=== PATIENT | male | born 1935 | race Caucasian/White ===

== ENCOUNTER → 2016-12-25 09:55 | Outpatient (CLI) | payer MEDICARE ==
[2013-03-24 10:47] VITALS: BMI 24.3
[~2016-12-25 09:55] MED LIST: ARICEPT10 MG PO; CARDURA4 MG PO; CIPRO500 MG PO; LIPITOR80 MG PO; MULTIPLE VITAMI1 TA1 PO; OMEGA 3 FISH OI1 CAP PO; OMEPRAZOLE20 M1 PO; STOOL SOFTENER100 M1 PO; ULTRAM50 MG PO; VITAMIN D31000 UNIT PO
== END | disposition home or self-care (01) ==
LOC: D.LAB 09:55
DX: R97.20 Elevated prostate specific antigen [PSA] (principal)

== ENCOUNTER 2017-02-13 06:18 | Day surgery (SDC) | payer MEDICARE ==
[2017-02-12 14:38] LABS: BASOPHILS 0.1 % (0-2); EOSINOPHILS 2.1 % (0-7); HEMATOCRIT 37.5 % (42.0-54.0); IMMATURE GRANULOCYTES 0.1 % (0-5); LYMPHOCYTES 11.2 % (15-50); MCH 32.6 pg (26.0-34.0); MCV 101.9 fL (80.0-100.0); MEAN PLATELET VOLUME 9.9 fL (7.4-10.4); NEUTROPHILS 77.5 % (40-80); PLATELET COUNT 104 10x3/uL (130-400); RBC 3.68 10x6/uL (4.20-6.10); RDW 13.8 % (11.5-14.5); WBC 9.8 10x3/uL (4.8-10.8)
[2017-02-12 15:10] LABS: ANION GAP 10.9 mmol/L (8-16); CALCIUM 8.5 mg/dL (8.5-10.1); CARBON DIOXIDE 27.5 mmol/L (21.0-32.0); CREATININE - SERUM 1.3 mg/dL (0.6-1.3); POTASSIUM - SERUM 4.4 mmol/L (3.5-5.1)
[~2017-02-13] VITALS: Ht 172.7 cm; Wt 66.7 kg
[2017-02-13 06:25] VITALS: BP 138/69; Ht 172.7 cm; Wt 66.7 kg
--- NOTE | 2017-02-13 08:32 | NUR ---
ARMS DOWN AT SIDE, ALLEN.
--- NOTE | 2017-02-13 08:33 | NUR ---
ULTRASOUND USED WITH ALLEN SIMPSON.
--- NOTE | 2017-02-14 16:50 | OP ---
PATIENT NAME: SYED CONNELLY MEDICAL RECORD: [id number] :35 LOCATION:[facility] ADMISSION DATE: SURGEON: SYED ABERNATHY MD DATE OF OPERATION: 02/13/2017 SURGEON: Syed Abernathy MD. ANESTHESIA: MAC by Dr. Soriano. PREOPERATIVE DIAGNOSIS: Elevated PSA greater than 9. PROCEDURE: Transrectal ultrasound and prostate biopsy with greater than 12 cores. FINDINGS: A 15 mL prostatic volume. Hypoechoic area in the left mid pole of the prostate with a 0.6 mL volume. PROCEDURES: Transrectal ultrasound and prostate biopsy. SPECIMENS: From prostate biopsy. ESTIMATED BLOOD LOSS: Minimal. CLINICAL HISTORY: This is an 81-year-old male, who has an elevated PSA level of 9.3. Previously was in the normal range. He has a family history of prostate cancer with a younger brother having prostate cancer. On digital rectal examination, he had a relatively small prostate and no palpable hard nodules. He comes now to have a transrectal ultrasound and prostate biopsy. He was ALLERGIC TO SULFA and he was given Cipro antibiotic prophylaxis, which he took at home, starting from 2 days prior to the biopsy. Also, he had a Fleet Enema the evening prior to the biopsy. Today, we gave him Ancef 1 gram and gentamicin 80 mg also IV. DESCRIPTION OF PROCEDURE: The patient was given IV sedation. He was placed in the dorsal lithotomy position and then prepped and draped. The ultrasound transrectal probe was placed into the rectum and prostate visualization and measurement was performed. A large hypoechoic lesion was visible in the left mid lobe of the prostate. We then divided the prostate into 6 quadrants. We had the left base, left mid and left apex for 3 quadrants on the left side. On the right side, there were similarly the right base, right mid and right apex. In each of these quadrants or sectors, we obtained 2 core biopsies using a biopsy gun. We actually have greater than 12 specimens because in some areas, we took extra, especially in the hypoechoic region on the ultrasound. The patient tolerated the procedure quite well and once the procedure was done, he was brought to the recovery room. TRANSINT:[id number] Voice Confirmation ID: [id number] DOCUMENT ID: [id number] OPERATIVE REPORT [id number] GODWINSYED SYED TREADWELL MD at 1650 CC: [id number] DICTATION DATE: 02/13/17 0915 CONTENT PRODUCER: 02/13/17 1143 [facility] 02/13/17 [facility] [address] [place] [address]
== END 2017-02-13 10:50 | disposition home or self-care (01) ==
LOC: D.OPS 06:18 → D.PAN 08:15 → D.OPS 08:30
PROVIDERS: Anesthesiology
DX: N40.0 Benign prostatic hyperplasia without lower urinary tract symptoms (principal); R97.20 Elevated prostate specific antigen [PSA]

== ENCOUNTER → 2019-01-11 10:13 | Outpatient (CLI) | payer OTHER ==
[2017-02-13 06:25] VITALS: BMI 22.4
== END | disposition home or self-care (01) ==
LOC: D.RAD 10:13
PROVIDERS: ATTEND Family Medicine
DX: R09.89 Other specified symptoms and signs involving the circulatory and respiratory systems (principal)

== ENCOUNTER 2020-01-27 10:16 | Inpatient (IN) | payer OTHER ==
[~2020-01-27] VITALS: Ht 172.7 cm; Wt 44.6 kg
[2020-01-27 11:03] LABS: BASOPHILS 0.1 % (0-2); EOSINOPHILS 0.8 % (0-7); HEMATOCRIT 39.3 % (42.0-54.0); HEMOGLOBIN 12.3 g/dL (13.5-17.5); IMMATURE GRANULOCYTES 0.4 % (0-5); LYMPHOCYTES 4.3 % (15-50); MCH 32.5 pg (26.0-34.0); MCHC 31.3 g/dL (31.0-37.0); MEAN PLATELET VOLUME 9.5 fL (7.4-10.4); MONOCYTES 7.4 % (2-11); RBC 3.78 10x6/uL (4.20-6.10); RDW 13.3 % (11.5-14.5); WBC 11.7 10x3/uL (4.8-10.8)
[2020-01-27 11:11] LABS: PLATELET COUNT 164 10x3/uL (130-400)
[2020-01-27 11:14] LABS: APTT 25.4 SECONDS (22.8-39.4); INR 1.12 (0.85-1.17); PROTIME 14.3 SECONDS (11.6-15.0)
[2020-01-27 11:31] LABS: CALC OSMOLALITY 288 mosm/kg (275-300); CALCIUM 8.6 mg/dL (8.5-10.1); CARBON DIOXIDE 29.1 mmol/L (21.0-32.0); CHLORIDE - SERUM 106 mmol/L (98-107); CREATININE - SERUM 1.5 mg/dL (0.6-1.3); GLUCOSE 83 mg/dL (74-106); POTASSIUM - SERUM 4.5 mmol/L (3.5-5.1); SODIUM 142 mmol/L (136-145); UREA NITROGEN 31 mg/dL (7-18); eGFR NON AFRICAN AMERICAN 47 mL/min (90-120)
[2020-01-27 11:38] LABS: ALBUMIN 2.3 g/dL (3.4-5.0); ALKALINE PHOSPHATASE 70 U/L (30-120); ALT (SGPT) 16 U/L (10-68); BILIRUBIN - TOTAL 0.46 mg/dL (0.2-1.3); CKMB 0.7 U/L (0.0-3.6); CREATINE KINASE 27 UL (21-232); MAGNESIUM - SERUM 2.4 mg/dL (1.8-2.4); PROTEIN - SERUM 5.6 g/dL (6.4-8.2); T4 THYROXIN - FREE 1.57 ng/dL (0.76-1.46); THYROID STIMULATING HORMONE 0.53 uIU/mL (0.36-3.74)
[2020-01-27 11:40] LABS: TROPONIN-I < 0.017 ng/mL (0.000-0.060)
[2020-01-27 13:03] LABS: UDS - AMPHET NEGATIVE QUAL (NEGATIVE); UDS - BARB NEGATIVE QUAL (NEGATIVE); UDS - BENZO NEGATIVE QUAL (NEGATIVE); UDS - COCAINE NEGATIVE QUAL (NEGATIVE); UDS - OPIATE NEGATIVE QUAL (NEGATIVE); UDS - PCP NEGATIVE QUAL (NEGATIVE); UDS - THC NEGATIVE QUAL (NEGATIVE)
[2020-01-27 13:18] LABS: BILIRUBIN NEGATIVE (NEGATIVE); GLUCOSE NEGATIVE (NEGATIVE); KETONE SMALL mg/dL (NEGATIVE); NITRITE NEGATIVE (NEGATIVE); SPECIFIC GRAVITY 1.025 (1.005-1.020)
--- NOTE | 2020-01-27 14:35 | NUR ---
PT TO ROOM FROM ER VIA CART. ASSIST TO TRANSFER TO BED. WEARING DEPENDS. ALERT BUT CONFUSED. LEVAQUIN INFUSING ON ARRIVAL.
--- NOTE | 2020-01-27 17:28 | NUR ---
PT FOUND TO HAVE PULLED IV OUT. WILL SITE NEW ONE. TELEMETRY PLACED. CALL TRANSFERRED INTO ROOM FROM .
--- NOTE | 2020-01-27 19:34 | NUR ---
PT CONFUSED AND PULLING LINES. IV OUT, TELEMETRY OFF. LOOKING FOR . CALLED HER SO HE COULD TALK TO HER BUT HX OF ALZEIMERS AND SUNDOWNING RIGHT NOW. UNABLE TO HAVE FAMILY STAY IN ROOM SO RONEN BRENNER CALLED. ORDERS FOR BENADRYL ONCE IV BACK IN TO SEE IF CALMS DOWN.
[2020-01-27] MEDS ORDERED: CIMETIDINE800 MG PO (19:41)
[2020-01-27] MEDS ORDERED: FLOMAX0.4 MG PO (19:42)
[2020-01-27] MEDS ORDERED: FOLIC ACID1 MG PO (19:44)
[2020-01-27] MEDS ORDERED: TRAZODONE HCL150 MG PO (19:45)
[2020-01-27] MEDS ORDERED: PREDNISONE1 MG PO (19:46)
[2020-01-27] MEDS ORDERED: BAYER CHEWABLE81 MG PO (19:49)
[2020-01-27] MEDS ORDERED: DULCOLAX STOOL100 MG PO (19:50)
[2020-01-27 20:00] VITALS: BP 144/56
[2020-01-28] VITALS: BP 151/70
--- NOTE | 2020-01-28 01:52 | NUR ---
ASSESSED AT THE BEGINNING OF THE SHIFT. PT IS CONFUSED AND HARD TO KEEP DRESSED AND IN THE BED. HE IS SOME WHAT COOPERATIVE WITH PUTTING ON DEPENDS IF THEY ARE WET AND HE DID FINALLY TAKE HIS MEDS AT HS. VERY PLEASANT BUT HAS NO IDEA WHERE HE IS AT. WE HAVE PUT HIM BACK IN BED MULTIPLE TIMES AND CHANGED HIM ABOUT 6 TIMES. AT THIS TIME HE IS AWAKE BUT STAYING IN THE BED WITH A BLANKET OVER HIM.
[2020-01-28 04:00] VITALS: BP 121/61
--- NOTE | 2020-01-28 04:04 | NUR ---
PT ALLOWED ME TO RESTART HIS IV IN THE RT WRIST AND HIS IV LASIX AND BENADRYL WERE GIVEN. HE HAD A ONE TIME ORDER FOR BENADRYL BUT HE HAD PULLED OUT HIS IV AND HE WAS UP AND ABOUT TOO MUCH TO KEEP ONE IN. RIGHT NOW HE HAS LEFT IT IN AND IS IN BED WITH THE COVERS ON. HOPEFULLY HE WILL KEEP IT IN. HE HAS BEEN NPO SINCE MIDNIGHT.
[2020-01-28 06:27] LABS: BASOPHILS 0.1 % (0-2); EOSINOPHILS 0.1 % (0-7); HEMATOCRIT 40.5 % (42.0-54.0); HEMOGLOBIN 12.6 g/dL (13.5-17.5); IMMATURE GRANULOCYTES 0.2 % (0-5); LYMPHOCYTES 3.8 % (15-50); MCH 32.1 pg (26.0-34.0); MCHC 31.1 g/dL (31.0-37.0); MCV 103.3 fL (80.0-100.0); MEAN PLATELET VOLUME 9.7 fL (7.4-10.4); MONOCYTES 8.3 % (2-11); NEUTROPHILS 87.5 % (40-80); RBC 3.92 10x6/uL (4.20-6.10); RDW 13.3 % (11.5-14.5); WBC 13.1 10x3/uL (4.8-10.8)
[2020-01-28 07:04] LABS: PLATELET COUNT 207 10x3/uL (130-400)
[2020-01-28 07:13] LABS: ALBUMIN 2.4 g/dL (3.4-5.0); ANION GAP 12.8 mmol/L (8-16); BILIRUBIN - TOTAL 0.45 mg/dL (0.2-1.3); CARBON DIOXIDE 30.9 mmol/L (21.0-32.0); CREATININE - SERUM 1.5 mg/dL (0.6-1.3); MAGNESIUM - SERUM 2.3 mg/dL (1.8-2.4); POTASSIUM - SERUM 4.7 mmol/L (3.5-5.1)
--- NOTE | 2020-01-28 07:28 | NUR ---
PT IN BED AT PRESENT. SLEEPING BUT RESTLESS. WILL MONITOR FOR OOB.
[2020-01-28 10:56] VITALS: BP 131/90
--- NOTE | 2020-01-28 11:34 | NUR ---
Rehab Prescreening Consult recieved and the chart has been reviewed. He is [facility] which will require a preauth for rehab. He will require a PT and an OT for their review. Discussed with the CM Kandi harris RN. Regina Hernandez RN Clinical Liaison, Rehab
[2020-01-28 14:15] LABS: % SATURATION 10 % (15-55); IRON 19 ug/dl (35-150); TOTAL IRON BIND CAPACITY 187 ug/dl (260-445); UNSAT IRON BIND CAPACITY 168 ug/dl (150-375)
[2020-01-28 14:23] VITALS: Ht 172.7 cm; Wt 44.6 kg
[2020-01-28 14:29] VITALS: BP 154/48
--- NOTE | 2020-01-28 17:01 | NUR ---
OT NOTE: PT REQUIRED MOD A FOR BED MOB SIDE ROLLING . PT REQUIRED MOD/MAX A FOR SUPINE TO SIT. PT REQUIRED SET UP FOR FACE HYGIENE AT EOB. PT COMPELTED UE AROM AXS. [id number] THANK YOU,ROSE CARLSON
[2020-01-28 18:29] VITALS: BP 140/65
--- NOTE | 2020-01-28 19:00 | NUR ---
REPORT RECEIVED. PT LAYING IN BED RR EVEN AND UNLABORED ON RA. NO S/SX OF DISTRESS OBSERVED. PT IS RESTLESS BUT REDIRECTED WELL. CONTINUES TO SHIVER BUT IS AFEBRILE AND DENIES BEING COLD. CALL LIGHT IN REACH. BED ALARM ON. WILL CPOC.
[2020-01-28 21:20] VITALS: BP 139/66
--- NOTE | 2020-01-28 22:00 | NUR ---
PROVIDED FULL LINEN CHANGE FOR INCONTINENCE OF BOWEL AND BLADDER. PT THREATENED TO CALL THE POLICE ON STAFF IF WE DID NOT LEAVE HIM ALONE. WILL CTM.
--- NOTE | 2020-01-29 00:34 | NUR ---
PROVIDED INCONT CARE. PT UPSET. WILL CPCO.
[2020-01-29 01:30] VITALS: BP 160/79
[2020-01-29 04:43] VITALS: BP 141/88
--- NOTE | 2020-01-29 05:34 | NUR ---
PT INCONT OF B&B. UNABLE TO OBTAIN ACCURATE OUTPUT.
[2020-01-29 06:19] LABS: BASOPHILS 0.1 % (0-2); EOSINOPHILS 0.1 % (0-7); HEMATOCRIT 39.9 % (42.0-54.0); HEMOGLOBIN 12.6 g/dL (13.5-17.5); IMMATURE GRANULOCYTES 0.1 % (0-5); LYMPHOCYTES 5.9 % (15-50); MCH 32.1 pg (26.0-34.0); MCHC 31.6 g/dL (31.0-37.0); MCV 101.5 fL (80.0-100.0); MEAN PLATELET VOLUME 9.3 fL (7.4-10.4); MONOCYTES 8.7 % (2-11); NEUTROPHILS 85.1 % (40-80); PLATELET COUNT 217 10x3/uL (130-400); RBC 3.93 10x6/uL (4.20-6.10); RDW 13.1 % (11.5-14.5)
[2020-01-29 06:35] LABS: ALBUMIN 2.3 g/dL (3.4-5.0); ANION GAP 14.2 mmol/L (8-16); BILIRUBIN - TOTAL 0.7 mg/dL (0.2-1.3); CALCIUM 9.5 mg/dL (8.5-10.1); CREATININE - SERUM 1.3 mg/dL (0.6-1.3); MAGNESIUM - SERUM 2.3 mg/dL (1.8-2.4); POTASSIUM - SERUM 4.2 mmol/L (3.5-5.1)
--- NOTE | 2020-01-29 07:49 | NUR ---
PT RESTING PEACEFULLY. LEANING ON SIDE WITH MOUTH OPEN, LOOKS SCARY BUT IS ACTUALLY JUST PT SLEEPING. BREATHS EVEN REGULAR AND UNLABORED. NO SIGNS OR SYMTPOMS OF ACUTE DISTRESS NOTED AT THIS TIME. DID NOT FURTHER DISTRUB AT THIS TIME. CL IN REACH, SRX2.
[2020-01-29 10:20] VITALS: BP 154/70
[2020-01-29 14:18] VITALS: BP 151/76
[2020-01-29 16:46] VITALS: BP 151/87
--- NOTE | 2020-01-29 18:52 | NUR ---
I have reviewed this patient and I concur with the Shift Assessment completed by the Licensed Practical Nurse today this shift.
--- NOTE | 2020-01-29 19:00 | NUR ---
REPORT RECEIVED. PT CARE ASSUMED. PT ATTEMPTING TO GET OUT OF BED AND IS LOOKING FOR . REDIRECTED EASILY. RR EVEN AND UNLABORED. NO S/SX OF DISTRESS OBSERVED. FLUIDS ENCOURAGED. CALL LIGHT IN REACH. WILL CPOC.
[2020-01-29 20:00] VITALS: BP 127/61
--- NOTE | 2020-01-29 21:30 | NUR ---
LINEN CHANGE PROVIDED FOR INCONT CARE. PT ALERT TO SELF ONLY. REFUSING THICKENED LIQUIDS AT THIS TIME. STATES HE ONLY LIKES "PEPSI". CALL LIGHT IN REACH. WILL CTM.
[2020-01-30 04:00] VITALS: BP 128/52
[2020-01-30 06:36] LABS: BASOPHILS 0 % (0-2); EOSINOPHILS 0.2 % (0-7); HEMATOCRIT 37.3 % (42.0-54.0); HEMOGLOBIN 11.7 g/dL (13.5-17.5); IMMATURE GRANULOCYTES 0.3 % (0-5); LYMPHOCYTES 6.2 % (15-50); MCH 31.6 pg (26.0-34.0); MCHC 31.4 g/dL (31.0-37.0); MCV 100.8 fL (80.0-100.0); MEAN PLATELET VOLUME 9.4 fL (7.4-10.4); MONOCYTES 9.3 % (2-11); PLATELET COUNT 223 10x3/uL (130-400); WBC 11.3 10x3/uL (4.8-10.8)
[2020-01-30 07:11] LABS: ANION GAP 13.9 mmol/L (8-16); BILIRUBIN - TOTAL 0.56 mg/dL (0.2-1.3); CARBON DIOXIDE 29.7 mmol/L (21.0-32.0); CREATININE - SERUM 1.5 mg/dL (0.6-1.3); MAGNESIUM - SERUM 2.3 mg/dL (1.8-2.4); POTASSIUM - SERUM 3.6 mmol/L (3.5-5.1); PROTEIN - SERUM 6.5 g/dL (6.4-8.2)
[2020-01-30 07:12] LABS: C-REACTIVE PROTEIN 14.2 mg/dL (0.0-0.9)
--- NOTE | 2020-01-30 07:44 | NUR ---
PT RESTING PEACEFULLY, WHEN SNORING? PT MAKES AWFUL GUPPY LIKE SNORING SOUNDS. RESTS WITH MOUTH GAPED OPEN, LEANING ON LEFT SIDE IN BED. DRS ARE AWARE. CL IN REACH,SRX2. BED ALARM ON AND WORKING WNL
[2020-01-30 10:35] VITALS: BP 131/72
--- NOTE | 2020-01-30 12:47 | NUR ---
PT GOT UP TO THE CHAIR WITH PHYSCIAL THERAPY, MODERATE TO MAX ASSIST. SAT IN THE CHAIR FOR ABOUT 1 HOUR, THEN GOT UP (STANDBY ASSIST) TO USE THE RESTROOM. NOW BACK IN BED, RESTING COFORTABLY BUT STILL DOING THE WEIRD BREATHING. O2 SATS ARE GOOD. CL IN REACH, SRX2, BED ALARM ON .
[2020-01-30 13:50] VITALS: BP 124/68
--- NOTE | 2020-01-30 17:33 | NUR ---
I have reviewed this patient and I concur with the Shift Assessment completed by the Licensed Practical Nurse today this shift.
--- NOTE | 2020-01-30 18:08 | NUR ---
PT AWAKE AND CONFUSED WHEN I ENTERED ROOM. EARLIER TODAY, ASSISTED PT TO RESTROOM. WHILE IN THE BATHROOM ADMINISTERED BED BATH. NOW RESTING COMFORABLY IN BED. NO COMPLAITNS OR CONCERNS, PLESANT DEMENOR WHEN AWAKE. CL IN REACH, SRX2, BED ALARM ON AND WORKING WNL.
[2020-01-30 20:00] VITALS: BP 138/68
[2020-01-31] VITALS: BP 137/66
[2020-01-31 04:00] VITALS: BP 142/67
[2020-01-31 06:33] LABS: BASOPHILS 0.1 % (0-2); EOSINOPHILS 0.1 % (0-7); HEMOGLOBIN 12.3 g/dL (13.5-17.5); IMMATURE GRANULOCYTES 0.3 % (0-5); LYMPHOCYTES 5.1 % (15-50); MCH 31.9 pg (26.0-34.0); MCHC 31.5 g/dL (31.0-37.0); MEAN PLATELET VOLUME 9.3 fL (7.4-10.4); MONOCYTES 8.6 % (2-11); NEUTROPHILS 85.8 % (40-80); PLATELET COUNT 214 10x3/uL (130-400); RBC 3.86 10x6/uL (4.20-6.10); RDW 13.1 % (11.5-14.5); WBC 13.1 10x3/uL (4.8-10.8)
[2020-01-31 06:56] LABS: ANION GAP 12.2 mmol/L (8-16); BILIRUBIN - TOTAL 0.62 mg/dL (0.2-1.3); CARBON DIOXIDE 31.1 mmol/L (21.0-32.0); CREATININE - SERUM 1.7 mg/dL (0.6-1.3); MAGNESIUM - SERUM 2.3 mg/dL (1.8-2.4); POTASSIUM - SERUM 3.3 mmol/L (3.5-5.1); PROTEIN - SERUM 6.7 g/dL (6.4-8.2)
[2020-01-31 06:58] LABS: ALBUMIN 2.1 g/dL (3.4-5.0)
--- NOTE | 2020-01-31 07:56 | NUR ---
PT LAYING IN BED RESTING WITH EYES OPEN RR EVEN AND UNLABORED AT THIS TIME. PT NPO FOR SCHEDULED PROCEDURE THIS AM. NO S/S OF DISTRESS. GRAND-DAUGHTER KAVYA AT BEDSIDE. BED LOW CALL LIGHT WITHIN REACH. WILL CONTINUE TO MONITOR.
[2020-01-31 08:00] VITALS: BP 138/67
--- NOTE | 2020-01-31 09:43 | NUR ---
PT ALERT WITH SOME CONFUSION. PT VSS. PT UP IN BEDSIDE CHAIR PER PT. CHAIR ALARM IN PLACE, CALL LIGHT WITHIN REACH, WILLCONTINUE TO MONITOR.
--- NOTE | 2020-01-31 09:57 | EC ---
PATIENT:MATEO CONNELLY DATE OF SERVICE: 01/27/20 SEX: M MEDICAL RECORD: [id number] DATE OF : 35 LOCATION:D.M2 D.213 AGE OF PATIENT: 84 ADMISSION DATE: 01/27/20 REFERRING PHYSICIAN: INTERPRETING PHYSICIAN: POLY CARABALLO MD ECHOCARDIOGRAM REPORT ECHO CHARGES 4 ECHO COMPLETE Date: 01/27/20 CLINICAL DIAGNOSIS: CHF ECHOCARDIOGRAPHIC MEASUREMENTS (adult normal given) AC root (d.<3.7cm) 3.1 cm LV Septum d (<1.2 cm> 1.1 cm Valve Excursion 1.9 cm LV Septum (systole) 1.8 cm Left Atria (s.<4.0cm> 3.2 cm LVPW d(<1.2cm) 1.0 cm RV (d.<2.3cm) 2.6 cm LVPW (sytole) 1.3 cm LV diastole(<5.6CM) 4.7 cm MV E-F(>70mm/sec) cm LV systole 3.4 cm LVOT Diameter 1.7 cm MV exc.(>10mm) cm Est.ejection fraction (50-75%) % DOPPLER: LVIT cm/sec A 74 cm/sec E 64 cm/sec LA cm/sec RVSP 31.0 mmHg LVOT 104 cm/sec AOP1/2T m/s Asc. Ao 135 cm/sec RVOT 80 cm/sec RA cm/sec PA 86 cm/sec AV Gradient Peak 7.3 mmHg AV Mean 3.6 mmHg AV Area 2.1 cm MV Gradient Peak 3.6 mmHg MV Mean 2.2 mmHg MV Area cm COMMENTS: Adjunct History Instructor: Ernesto [facility] Group Director Experience: 3 Dr. Parker TAPE# PACS Pericardial Effusion N DATE OF SERVICE: Adequate 2D, color flow imaging, spectral Doppler, and M-Mode No LVH. LV internal dimension is normal. Wall motion is normal. EF is greater than or equal to 55%. Aortic valve is tricuspid. No evidence of stenosis on Doppler interrogation. Left atrium is normal at 3.2 cm. Mitral valve shows no prolapse. Trace MR. Right-sided chambers are grossly normal. Trace TR. TRANSINT:[id number] Voice Confirmation ID: [id number] DOCUMENT ID: [id number] ECHOCARDIOGRAM REPORT [id number] MATEO CONNELLY POLY CARABALLO MD at 0957 CC: [id number] DICTATION DATE: 01/28/20 1016 SUPERVISOR EPOXY FABRICATION: 01/28/20 1204 ADM IN [place] [id number] [place] [address]
--- NOTE | 2020-01-31 11:27 | NUR ---
Noted a stage 2 pressure injury on sacrum measuring 4cm x 3cm. No drainage or odor is noted. Bilateral heels are non-blanchable red and boggy. Protected sacrum with large mepilex sacral dressing and both heels with mepilex heel protection dressings. Pt is being turned/repositioned q 2 hours and heels are elevated, but he is confused and kicks pillows out and repositions himself back on his back. Wound care will continue monitoring.
[2020-01-31 14:03] VITALS: BP 124/68
--- NOTE | 2020-01-31 14:54 | NUR ---
Nutrition follow-up: Diet per speech is puree with nectar thick liquids However, pts diet order is mechanical soft with nectar thick liquids Pt needs assistance with all meals PO intake very poor - < 25% of meals +BM on 01/27 Wt now charted as 102# Will clarify. Pt will need PEG tube placement and TF started if po intake remains poor if medically feasible. RDN following.
--- NOTE | 2020-01-31 15:32 | NUR ---
OT NOTE: (AM) PT COMPLETED SUPINE TO SIT WITH MIN A. PT COMPLETED SIT TO STAND WITH MOD A. PT COMPLETED BED TO CHAIR TRANSFER WITH MOD A. PT COMPLETED UB HYGEINE WITH MOD A. PT IS CONFUSED . (PM) PT COMPLETED BED MOB TASKS WITH MOD A FOR SIDE ROLLING. PT USED GRAB BARS TO ASSIST. PT ATTEMPTED TO BRIDGE WITH MOD A. PT REQUIRED MAX A WITH HYGIENE TASKS. [phone] THANK YOU,ROSE CARLSON
[2020-01-31 18:27] VITALS: BP 124/62
--- NOTE | 2020-01-31 19:19 | NUR ---
BED SIDE REPORT PT IS NOT ANSWERING ALL QUESTION ASSISTED WITH COMFORT MEASURES AND UP IN BED SR X2 AND CALL LIGHT IS WITH PT
--- NOTE | 2020-01-31 21:30 | NUR ---
ATTEMPTED DRINK AND FOOD BUT PT WILL NOT ATTEMPT TO USE STRAW OR TO EXCEPT FOOD WILL SWAB NOUTH FOR COMFORT
[2020-01-31 22:09] VITALS: BP 146/68
--- NOTE | 2020-01-31 22:41 | NUR ---
RESTING NOW IF ASLEEP
[2020-02-01] VITALS (10 sets, daily range): BP systolic 100–140; BP diastolic 58–94
[2020-02-01 00:40] LABS: INR 1.13 (0.85-1.17); PROTIME 14.5 SECONDS (11.6-15.0)
[2020-02-01 01:15] LABS: ALBUMIN 2.1 g/dL (3.4-5.0); ANION GAP 15.4 mmol/L (8-16); BILIRUBIN - TOTAL 0.62 mg/dL (0.2-1.3); CALCIUM 8.4 mg/dL (8.5-10.1); CARBON DIOXIDE 28.7 mmol/L (21.0-32.0); CREATININE - SERUM 1.9 mg/dL (0.6-1.3); MAGNESIUM - SERUM 2.4 mg/dL (1.8-2.4); POTASSIUM - SERUM 3.1 mmol/L (3.5-5.1); PROTEIN - SERUM 6.7 g/dL (6.4-8.2)
[2020-02-01 04:26] LABS: BASOPHILS 0 % (0-2); EOSINOPHILS 0.1 % (0-7); HEMATOCRIT 37.4 % (42.0-54.0); HEMOGLOBIN 11.7 g/dL (13.5-17.5); IMMATURE GRANULOCYTES 0.3 % (0-5); LYMPHOCYTES 5.6 % (15-50); MCHC 31.3 g/dL (31.0-37.0); MCV 102.2 fL (80.0-100.0); MEAN PLATELET VOLUME 9.7 fL (7.4-10.4); MONOCYTES 6.3 % (2-11); NEUTROPHILS 87.7 % (40-80); PLATELET COUNT 249 10x3/uL (130-400); RBC 3.66 10x6/uL (4.20-6.10); RDW 13.1 % (11.5-14.5); WBC 14.3 10x3/uL (4.8-10.8)
--- NOTE | 2020-02-01 07:22 | NUR ---
THIS NURSE AND EDYTA PATINO GOT VERBAL OVER THE PHONE CONSENT FROM PT'S SPOUSE NIKKI CONNELLY FOR BRONCHSCOPY AND THORACENTESIS TODAY.
--- NOTE | 2020-02-01 11:10 | NUR ---
PT RETURNED FROM THORACENTESIS. ALERT AND LAYING IN BED. ELIA RN STATES THEY WERE ONLY ABLE TO GET 3ML OFF AND NO SEDATION WAS GIVEN.
--- NOTE | 2020-02-01 12:29 | MORECARE ---
CASE MANAGEMENT DISCHARGE SUMMARY PATIENT: MATEO GALLO UNIT: [id number] ADM DATE: 01/27/20 AGE: 84 : 35 SEX: M ROOM/BED: D.2138 AUTHOR: JEFFERY GREEN PHYSICIAN: REFERRING PHYSICIAN: HAMIDA MALONE DO DATE OF SERVICE: 02/01/20 Discharge Plan Patient Name: MATEO GALLO [facility] [facility] 1935 Planned Disposition: Inpatient Rehab Anticipated Discharge Date: 02/01/20 Discharge Date: Expected LOS: 5 Initial Reviewer: [email or web address] Initial Review Date: 02/01/2020 Generated: 02/01/20 1:28 pm DCPIA - Discharge Planning Initial Assessment Updated by [email or web address]: Kandi Bustillo on 02/01/20 12:28 pm * Is the patient Alert and Oriented? Yes * How many steps to enter\exit or inside your home? 3/0 * PCP Dr. Nur * Pharmacy [facility] [address] * Preadmission Environment Home with Family * ADLs Partial Dependent * Partial ADLs (Assistance needed) Ambulation * Equipment Cane Walker * List name and contact numbers for known caregivers / representatives who currently or will assist patient after discharge: Connie Gallo - [facility] - [phone] * Verbal permission to speak to the caregivers and representatives has been obtained from the patient. Yes * Community resources currently utilized None * Additional services required to return to the preadmission environment? No * Can the patient safely return to the preadmission environment? Yes * Has this patient been hospitalized within the prior 30 days at any hospital? No External Providers External Provider: [facility] Next Contact Date: Service Request Date: Service Type: Resolution: Reviewer: Comments: Patient Name: AMTEO GALLO Page [phone] at 1229 All edits/amendments must be made on the electronic document DICTATION DATE: 02/01/20 1228 STORE OPERATIONS ASSOCIATE: MITCHEL 02/01/20 1228 RPT#: [id number] DC DATE: STATUS: ADM IN [facility] [address] [place] [address] END OF REPORT
--- NOTE | 2020-02-01 12:37 | NUR ---
SEVERAL ATTEMPTS MADE TO LOOK AT PT'S DRESSING FROM THORACENTESIS AND TO SEE IF PT HAS HAD AN INCONTINENT EPISODE. PT SWATS AT THIS NURSE AND COVERS HIMSELF AND WILL NOT LET THIS NURSE LOOK.
--- NOTE | 2020-02-01 12:38 | MORECARE ---
CASE MANAGEMENT DISCHARGE SUMMARY PATIENT: MATEO GALLO UNIT: [id number] ADM DATE: 01/27/20 AGE: 84 : 35 SEX: M ROOM/BED: D.6498 AUTHOR: JEFFERY GREEN PHYSICIAN: REFERRING PHYSICIAN: HAMIDA MALONE DO DATE OF SERVICE: 02/01/20 Discharge Plan Patient Name: MATEO GALLO Facility: [facility]:[place] : 1935 Planned Disposition: Inpatient Rehab Anticipated Discharge Date: 02/01/20 Discharge Date: Expected LOS: 5 Initial Reviewer: [email or web address] Initial Review Date: 02/01/2020 Generated: 02/01/20 1:38 pm Comments DCP- Discharge Planning Updated by [email or web address]: Kandi Bustillo on 02/01/20 11:[address] Patient Name: MATEO GALLO Admission Status: ER Accout number: [id number] Admission Date: 01-27-2020 : 1935 Admission Diagnosis: Attending: HAMIDA MALONE Current LOS: 5 Anticipated DC Date: 02-01-2020 Planned Disposition: Inpatient Rehab Primary Insurance: [employer] DC Plan: DC to inpatient rehab at [facility] Discharge Planning Comments: CM called patient's to discuss discharge planning/needs. He lives with his . states typically he is able to ambulate with a cane or walker and do his own ADL's. States when he gets sick, his confusion is worse and he needs more direction. States she would like him to go to [facility] inpatient rehab before coming home. She declines SNF at this time if he is not authorized to go to inpatient rehab. She is asking for special circumstances to be able to come to [facility] and stay with her , states he probably will be more cooperative if I am there. Jany Otto is aware of this and is going to return her call concerning this. She states her is a , but declines to use the VA and just wants to use Medicare benefits. She states that she is considering [facility] when her is released from rehab. CM will continue to follow and assist with discharge planning/needs. Bone Drier: Kandi Bustillo DCPIA - Discharge Planning Initial Assessment Updated by [email or web address]: Kandi Bustillo on 02/01/20 12:28 pm * Is the patient Alert and Oriented? Yes * How many steps to enter\exit or inside your home? 3/0 * PCP Dr. Nur * Pharmacy [facility] on [address] * Preadmission Environment Home with Family * ADLs Partial Dependent * Partial ADLs (Assistance needed) Ambulation * Equipment Cane Walker * List name and contact numbers for known caregivers / representatives who currently or will assist patient after discharge: Connie Gallo [facility] - [phone] * Verbal permission to speak to the caregivers and representatives has been obtained from the patient. Yes * Community resources currently utilized None * Additional services required to return to the preadmission environment? No * Can the patient safely return to the preadmission environment? Yes * Has this patient been hospitalized within the prior 30 days at any hospital? No Last DP export: 02/01/20 11:29 a Patient Name: MATEO GALLO Page [phone] at 1238 All edits/amendments must be made on the electronic document DICTATION DATE: 02/01/20 1238 DIGITAL AD TRAFFICKER: MITCHEL 02/01/20 1238 RPT#: [id number] DC DATE: STATUS: ADM IN [facility] [address] [place] [address] END OF REPORT
--- NOTE | 2020-02-01 13:07 | NUR ---
I have reviewed this patient and I concur with the Shift Assessment completed by the Licensed Practical Nurse today this shift.
--- NOTE | 2020-02-01 13:30 | NUR ---
PT ABLE TO USE COMMODE IN BATHROOM WITH MAX. ASSIST. PT HAD STOOL BUT IT WAS FLUSHED WITHOUT GETTING COLLECTED.
--- NOTE | 2020-02-01 14:01 | NUR ---
OT NOTE: PT OUT FOR PROCEDURES IN BOTH AM AND PM ON THIS DATE. ANA MARIA PICKENS, OTR/L
[2020-02-01 14:31] LABS: PROTEIN - BODY FLUID 4.4 G/DL
[2020-02-01 14:54] LABS: MACROPHAGES BF 1 %; NEUT - BF 96 %
--- NOTE | 2020-02-01 14:55 | NUR ---
Nutrition follow-up: Pt is now assessed with severe malnutrition of chronic illness based on the following GLIM criteria: Phenotypic: 1. BMI: 15.0 - Pt now weighs 98.4# 2. Extremely reduced muscle mass to all extremeties, scapula, clavicle areas Temporal wasting per nutrition focused physical assessment Etiologic criteria: 1. Pt with < 50% intake of estimated energy needs for > 1 week per family member 2. 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 Pt refusing to eat at this time. Will need to consider placing PEG tube for nutrition support if medically feasible. RDN following.
--- NOTE | 2020-02-01 18:05 | NUR ---
PT HAS IN OCNTINENT EPISODE. COMPLETE LINEN CHANGE DONE. DRESSING FROM THROACENTESIS NOTED TO MIDDLE OF BACK C/D/I. MEPILEX TO BUTTOCK C/D/I.
--- NOTE | 2020-02-01 19:46 | NUR ---
PT LYING BACK IN BED WITH HEAD ELEVATED. EYES CLOSED BUT IS EASLIY AWAKEN WITH VOICE STIMULATION BUT PT FALLS BACK TO SLEEP. CALLED TO CHECK ON PT. BED ALARM ON AND ACTIVE. CALL LIGHT WITH IN REACH. WILL CONTINUE TO MONITOR.
[2020-02-02] VITALS: BP 140/67
[2020-02-02 04:00] VITALS: BP 133/64
[2020-02-02 05:47] LABS: BASOPHILS 0.1 % (0-2); EOSINOPHILS 0.1 % (0-7); HEMATOCRIT 39.8 % (42.0-54.0); HEMOGLOBIN 12.3 g/dL (13.5-17.5); IMMATURE GRANULOCYTES 0.3 % (0-5); LYMPHOCYTES 4.4 % (15-50); MCH 31.8 pg (26.0-34.0); MCHC 30.9 g/dL (31.0-37.0); MCV 102.8 fL (80.0-100.0); MEAN PLATELET VOLUME 9.4 fL (7.4-10.4); MONOCYTES 6.7 % (2-11); NEUTROPHILS 88.4 % (40-80); PLATELET COUNT 245 10x3/uL (130-400); RBC 3.87 10x6/uL (4.20-6.10); RDW 13.2 % (11.5-14.5); WBC 13.7 10x3/uL (4.8-10.8)
[2020-02-02 06:06] LABS: ANION GAP 13.8 mmol/L (8-16); CARBON DIOXIDE 30.4 mmol/L (21.0-32.0); CREATININE - SERUM 2.1 mg/dL (0.6-1.3); POTASSIUM - SERUM 3.2 mmol/L (3.5-5.1)
--- NOTE | 2020-02-02 07:12 | NUR ---
PT CHOKING ON THICKENED LIQUIDS PER UTILITY TECH. FOR PT'S SAFETY THIS NURSE RECONSULTED SPEECH THERAPY AND WILL HOLD GIVING MEDS AT THIS TIME.
--- NOTE | 2020-02-02 07:54 | NUR ---
PT LETHARGIC. STATED THIS TO KE NICHOLS AND THAT PT WAS CHOKING LAST NIGHT ON THICKENED WATER AND THAT I RECONSULTED SPEECH THERAPY. SHE WENT AND LOOKED AT PT AND STATED TO ORDER STAT ABG'S AND STATES THAT PT DOES NOT LOOK GOOD.
[2020-02-02 09:11] VITALS: BP 145/97
--- NOTE | 2020-02-02 10:13 | NUR ---
Spoke to Kandi Bustillo RN CM about the peer to peer for this patient, after receiving the denial for inpatient rehab from [facility]. Dr Quiñonez is agreeable and wants to do the peer to peer for this patient. Called Brielle at [facility] [phone] to schedule a time and date. Dr Jennifer Rob at [facility] will call Dr Quiñonez on Saturday 02/03 between 2 and 4 pm. Informed the MARLYN Chau of this appointment, she will make Dr Quiñonez aware. Regina Hernandez RN Clinical Liaison, Rehab
--- NOTE | 2020-02-02 11:29 | NUR ---
PT X2 ASSIST WITH P.T. TO BSC PT HAS A BM. PT THEN ASSISTED INTO RECLINER CHAIR. SPEECH THERAPY AT BEDSIDE DOING EVALUATION. AND GRANDDAUGHTER ALSO AT BEDSIDE.
--- NOTE | 2020-02-02 11:58 | NUR ---
OT NOTE: PT PERFORMED BED MOB WITH MOD ASSIST; NOTICED TO HAVE HAD LARGE AMOUNT OF DIARRHEA IN BED; SIT TO STAND WITH MOD ASSIST; TRANSFER TO COMMODE WITH MOD ASSIST; MAX ASSIST FOR HYGIENE ; MOD ASSIST X 2 WITH AMB IN ROOM WITHOUT WALKER; TRANSFER WITH MOD ASSIST X 2 ANA MARIA PICKENS, OTR/L [id number]
--- NOTE | 2020-02-02 12:32 | MORECARE ---
CASE MANAGEMENT DISCHARGE SUMMARY PATIENT: MATEO GALLO UNIT: [id number] ADM DATE: 01/27/20 AGE: 84 : 35 SEX: M ROOM/BED: D.2138 AUTHOR: JEFFERY GREEN PHYSICIAN: REFERRING PHYSICIAN: HAMIDA MALONE DO DATE OF SERVICE: 02/02/20 Discharge Plan Patient Name: MATEO GALLO Facility: [facility]:[place] : 1935 Planned Disposition: Inpatient Rehab Anticipated Discharge Date: 02/01/20 Discharge Date: Expected LOS: 5 Initial Reviewer: [id number] Initial Review Date: 02/01/2020 Generated: 02/02/20 1:32 pm Comments DCP- Discharge Planning Updated by [id number]: Kandi Bustillo on 02/02/20 11:[address] Patient's is at bedside. Patient is sitting in chair and is responding to his . I spoke with about discharge plan. I informed her that his insurance has denied inpatient rehab. She does want Dr. Quiñonez to do the peer to peer on Friday to see if this can be overturned. She is unsure at this time if he is strong enough to go home. She states if he does not qualify or is not authorized to go to inpatient rehab, she would like [facility] for PT and ST. I will set home health up in the event he is unable to go to inpatient rehab. CM will continue to follow and assist with discharge planning/needs. DCP- Discharge Planning Updated by [email or web address]: Kandi Bustillo on 02/01/20 11:[address] Patient Name: MATEO GALLO Admission Status: ER Accout number: [id number] Admission Date: 01-27-2020 : 1935 Admission Diagnosis: Attending: HAMIDA MALONE Current LOS: 5 Anticipated DC Date: 02-01-2020 Planned Disposition: Inpatient Rehab Primary Insurance: NOVASYSMCR DC Plan: DC to inpatient rehab at [facility] Discharge Planning Comments: CM called patient's to discuss discharge planning/needs. He lives with his . states typically he is able to ambulate with a cane or walker and do his own ADL's. States when he gets sick, his confusion is worse and he needs more direction. States she would like him to go to [facility] inpatient rehab before coming home. She declines SNF at this time if he is not authorized to go to inpatient rehab. She is asking for special circumstances to be able to come to [facility] and stay with her , states he probably will be more cooperative if I am there. Jany Otto is aware of this and is going to return her call concerning this. She states her is a , but declines to use the VA and just wants to use Medicare benefits. She states that she is considering [facility] when her is released from rehab. CM will continue to follow and assist with discharge planning/needs. Marketing Forecaster: Kandi Bustillo DCPIA - Discharge Planning Initial Assessment Updated by [id number]: Kandi Bustillo on 02/01/20 12:28 pm * Is the patient Alert and Oriented? Yes * How many steps to enter\exit or inside your home? 3/0 * PCP Dr. Nur * Pharmacy [facility] on [address] * Preadmission Environment Home with Family * ADLs Partial Dependent * Partial ADLs (Assistance needed) Ambulation * Equipment Cane Walker * List name and contact numbers for known caregivers / representatives who currently or will assist patient after discharge: Connie Gallo - spouse - [phone] * Verbal permission to speak to the caregivers and representatives has been obtained from the patient. Yes * Community resources currently utilized None * Additional services required to return to the preadmission environment? No * Can the patient safely return to the preadmission environment? Yes * Has this patient been hospitalized within the prior 30 days at any hospital? No Coverage Notice Reviewer: [id number] Ten Bustillo Notice Issued Date-Time: 02/01/2020 12:39 Notice Type: Patient Choice Letter Notice Delivered To: Family Member Relationship to Patient: Spouse Nautical Instrument Mechanic Name: Connie Delivery Method: HAND - Hand Delivered Brielle Days: Prior Verbal Notification: Recipient Understood Notice: Yes Recipient Signature: Yes Med Rec Note Co-signed by Attending: Coverage Notice Comment: MARKEL for [facility] inpatient rehab and [facility] Reviewer: [id number] Ten Bustillo Notice Issued Date-Time: 02/02/2020 12:29 Notice Type: IM Discharge Notice Notice Delivered To: Family Member Relationship to Patient: Spouse Nautical Instrument Mechanic Name: Connie Delivery Method: HAND - Hand Delivered Brielle Days: Prior Verbal Notification: Recipient Understood Notice: Yes Recipient Signature: Yes Med Rec Note Co-signed by Attending: Coverage Notice Comment: IMM explained, signed, given, copy placed in MR Reviewer: [id number] Ten Kandiwalker Bustillo Notice Issued Date-Time: 02/02/2020 12:29 Notice Type: Patient Choice Letter Notice Delivered To: Family Member Relationship to Patient: Spouse Nautical Instrument Mechanic Name: Delivery Method: - Brielle Days: Prior Verbal Notification: Recipient Understood Notice: Recipient Signature: Med Rec Note Co-signed by Attending: Coverage Notice Comment: Last DP export: 02/01/20 11:38 a Patient Name: MATEO GALLO Page [phone] at 1232 All edits/amendments must be made on the electronic document DICTATION DATE: 02/02/20 1232 INCIDENT RESPONSE SPECIALIST: MITCHEL 02/02/20 1232 RPT#: [id number] ID DATE: STATUS: ADM IN [facility] [address] [place] [address] END OF REPORT
[2020-02-02 13:09] LABS: ACID FAST SMEAR Negative (()); AFB SPECIMEN PROCESSING Concentration (())
--- NOTE | 2020-02-02 14:32 | NUR ---
OT NOTE: PT COMPLETED CHAIR TO BED TSF WITH MIN /MOD A. PT WAS CONFUSED WITH WALKER MANAGEMENT. PT COMPLETED BED MOB WITH MAX A. PT REQUIRED MAX/TOTAL A WITH LB HYGIENE SECONDARY TO BM. PT REQUIRED MIN A WITH HAND HYGIENE. [phone] THANK YOU, ROSE CARLSON
--- NOTE | 2020-02-02 17:09 | NUR ---
I have reviewed this patient and I concur with the Shift Assessment completed by the Licensed Practical Nurse today this shift.
[2020-02-02 17:12] VITALS: BP 156/82
--- NOTE | 2020-02-02 18:38 | NUR ---
PT HAD INCONENT URINE AND BM IN BED. CLEANED PT AND CHANGED MEPILEX TO BUTTOCK. STAGE 1 NOTED TO COCCYX AND EXCORIATION UNDER SCROTUM. PT X2 PERSON ASSIST TO RECLINER CHAIR. AT BEDSIDE.
[2020-02-02 20:00] VITALS: BP 107/65
[2020-02-02 23:44] VITALS: BP 121/52
[2020-02-03 04:00] VITALS: BP 126/45
[2020-02-03 06:01] LABS: BASOPHILS 0 % (0-2); EOSINOPHILS 0.2 % (0-7); HEMATOCRIT 41.6 % (42.0-54.0); HEMOGLOBIN 12.6 g/dL (13.5-17.5); IMMATURE GRANULOCYTES 0.4 % (0-5); MCH 31.4 pg (26.0-34.0); MCHC 30.3 g/dL (31.0-37.0); MCV 103.7 fL (80.0-100.0); MEAN PLATELET VOLUME 9.7 fL (7.4-10.4); MONOCYTES 4.8 % (2-11); NEUTROPHILS 88.6 % (40-80); PLATELET COUNT 243 10x3/uL (130-400); RBC 4.01 10x6/uL (4.20-6.10); RDW 13.3 % (11.5-14.5); WBC 13.5 10x3/uL (4.8-10.8)
--- NOTE | 2020-02-03 06:16 | NUR ---
[facility]P THERAPY CALLED AT THIS TIME TO ASSESS PT DUE TO THE AMOUNT OF EFFORT PT IS HAVING TO BREATH.
[2020-02-03 06:17] LABS: ANION GAP 15.4 mmol/L (8-16); CALCIUM 8.9 mg/dL (8.5-10.1); CARBON DIOXIDE 29.3 mmol/L (21.0-32.0); CREATININE - SERUM 1.8 mg/dL (0.6-1.3); POTASSIUM - SERUM 3.7 mmol/L (3.5-5.1)
--- NOTE | 2020-02-03 06:43 | NUR ---
PAGED PULMONOLOGY AT THIS TIME DUE TO CHANGE IN PT STAUTS.
[2020-02-03 08:45] VITALS: BP 175/64
--- NOTE | 2020-02-03 13:54 | NUR ---
I have reviewed this patient and I concur with the Shift Assessment completed by the Licensed Practical Nurse today this shift.
[2020-02-03 14:15] VITALS: BP 100/57
--- NOTE | 2020-02-03 15:40 | NUR ---
OT NOTE: (AM SESSION) UPON ENTERING ROOM PTS WAS ATTEMPTING TO FEED PT A OPAL. PTS EDUCATED AND NURSING NOTIFIED. PT REQUIRED MIN A FOR SUPINE TO SIT. PT REQUIRED MIN A FOR ADL MOB WITH RW. PT COMPLETED BED TO CHAIR TRANSFER WITH CGA/MIN A. PT COMPLETED LB HYGIENE TASKS WITH MAX/TOTAL A. PT IS WEAK. PT IS CONFUSED. PT REQUIRED VERBAL CUES FOR INCREASED TASK SEQUENCING. (PM SESSION) PT REQUIRED MIN A FOR CHAIR TO BED TRANSFER. PT COMPLETED ADL MOB WITH RW WITH MIN A. PT COMPLETED UE AROM AXS WITH WALKER MANAGEMENT. [phone] THANK YOU,ROSE CARLSON
[2020-02-03 18:16] VITALS: BP 111/56
--- NOTE | 2020-02-03 19:10 | NUR ---
AT REST WITH EYES CLOSED EASILY AROUSED PULLED UP IN BED BED LOW AND LOCKED PT DOES NOT RESPOND VERBALLY
[2020-02-03 20:00] VITALS: BP 118/74
--- NOTE | 2020-02-03 21:26 | NUR ---
PT CLINCHED MOUTH AND STRUCK AT MY HANDS AND SPIT OUT THE MED I GOT IN MOUTH ..NO MEDS GIVEN ALSO ATTEMPTED SUCTIONING WITH NO SUCCESS PT WOULD NOT COPERATE AND CLINCHED MOUTH SHUT AND BITE AT SUCTIOINING CATH
[2020-02-04] VITALS: BP 121/64
--- NOTE | 2020-02-04 00:42 | NUR ---
RESTING QUITELY IN BED AT THIS TIME, WILL CONTINUE TO MONITOR
--- NOTE | 2020-02-04 00:42 | NUR ---
I have reviewed this patient and I concur with the Shift Assessment completed by the Licensed Practical Nurse today this shift.
--- NOTE | 2020-02-04 02:59 | NUR ---
I have reviewed this patient and I concur with the Shift Assessment completed by the Licensed Practical Nurse today this shift.
[2020-02-04 04:00] VITALS: BP 130/70
[2020-02-04 05:59] LABS: BASOPHILS 0.1 % (0-2); EOSINOPHILS 0.4 % (0-7); HEMATOCRIT 41.9 % (42.0-54.0); HEMOGLOBIN 12.9 g/dL (13.5-17.5); IMMATURE GRANULOCYTES 0.3 % (0-5); MCH 31.9 pg (26.0-34.0); MCHC 30.8 g/dL (31.0-37.0); MCV 103.5 fL (80.0-100.0); MEAN PLATELET VOLUME 10.5 fL (7.4-10.4); MONOCYTES 6.1 % (2-11); NEUTROPHILS 87.1 % (40-80); PLATELET COUNT 268 10x3/uL (130-400); RBC 4.05 10x6/uL (4.20-6.10); RDW 13.4 % (11.5-14.5); WBC 13.1 10x3/uL (4.8-10.8)
[2020-02-04 07:19] LABS: ANION GAP 9.6 mmol/L (8-16); CALCIUM 9.1 mg/dL (8.5-10.1); CARBON DIOXIDE 31.2 mmol/L (21.0-32.0); CREATININE - SERUM 1.7 mg/dL (0.6-1.3)
[2020-02-04 07:22] LABS: POTASSIUM - SERUM 2.8 mmol/L (3.5-5.1)
[2020-02-04 08:36] VITALS: BP 142/66
--- NOTE | 2020-02-04 12:13 | NUR ---
OT NOTE: WITHHELD THERAPY THIS AM SECONDARY TO PT VERY LETHARGIC. ANA MARIA PICKENS, OTR/L
[2020-02-04 13:18] VITALS: BP 125/58
--- NOTE | 2020-02-04 13:38 | MORECARE ---
CASE MANAGEMENT DISCHARGE SUMMARY PATIENT: MATEO GALLO UNIT: [id number] ADM DATE: 01/27/20 AGE: 84 : 35 SEX: M ROOM/BED: D.0025 AUTHOR: JEFFERY GREEN PHYSICIAN: REFERRING PHYSICIAN: HAMIDA MALONE DO DATE OF SERVICE: 02/04/20 Discharge Plan Patient Name: MATEO GALLO Facility: [facility]:[place] : 1935 Planned Disposition: Inpatient Rehab Anticipated Discharge Date: 02/01/20 Discharge Date: Expected LOS: 5 Initial Reviewer: [id number] Initial Review Date: 02/01/2020 Generated: 02/04/20 2:38 pm Comments DCP- Discharge Planning Updated by [email or web address]: Kandi Bustillo on 02/04/20 12:[address] Nereyda, grand daughter, informed me that they are considering home health vs hospice and do not want a P2P to be done for inpatient rehab at this time. CM will continue to follow and assist with discharge planning/needs. DCP- Discharge Planning Updated by [id number]: Kandi Bustillo on 02/02/20 11:[address] Patient's is at bedside. Patient is sitting in chair and is responding to his . I spoke with about discharge plan. I informed her that his insurance has denied inpatient rehab. She does want Dr. Quiñonez to do the peer to peer on Friday to see if this can be overturned. She is unsure at this time if he is strong enough to go home. She states if he does not qualify or is not authorized to go to inpatient rehab, she would like [facility] for PT and ST. I will set home health up in the event he is unable to go to inpatient rehab. CM will continue to follow and assist with discharge planning/needs. DCP- Discharge Planning Updated by [id number]: Kandi Bustillo on 02/01/20 11:[address] Patient Name: MATEO GALLO Admission Status: ER Accout number: [id number] Admission Date: 01-27-2020 : 1935 Admission Diagnosis: Attending: HAMIDA MALONE Current LOS: 5 Anticipated DC Date: 02-01-2020 Planned Disposition: Inpatient Rehab Primary Insurance: NOVASYSMCR DC Plan: DC to inpatient rehab at [facility] Discharge Planning Comments: CM called patient's to discuss discharge planning/needs. He lives with his . states typically he is able to ambulate with a cane or walker and do his own ADL's. States when he gets sick, his confusion is worse and he needs more direction. States she would like him to go to [facility] inpatient rehab before coming home. She declines SNF at this time if he is not authorized to go to inpatient rehab. She is asking for special circumstances to be able to come to [facility] and stay with her , states he probably will be more cooperative if I am there. Jany Otto is aware of this and is going to return her call concerning this. She states her is a , but declines to use the VA and just wants to use Medicare benefits. She states that she is considering [facility] when her is released from rehab. CM will continue to follow and assist with discharge planning/needs. Independent Jeweler: Kandi Bustillo DCPIA - Discharge Planning Initial Assessment Updated by [email or web address]: Kandi Bustillo on 02/01/20 12:28 pm * Is the patient Alert and Oriented? Yes * How many steps to enter\exit or inside your home? 3/0 * PCP Dr. Nur * Pharmacy [facility] on [address] * Preadmission Environment Home with Family * ADLs Partial Dependent * Partial ADLs (Assistance needed) Ambulation * Equipment Cane Walker * List name and contact numbers for known caregivers / representatives who currently or will assist patient after discharge: Connie Gallo - spouse - [phone] * Verbal permission to speak to the caregivers and representatives has been obtained from the patient. Yes * Community resources currently utilized None * Additional services required to return to the preadmission environment? No * Can the patient safely return to the preadmission environment? Yes * Has this patient been hospitalized within the prior 30 days at any hospital? No Coverage Notice Reviewer: [id number] - Kandi Bustillo Notice Issued Date-Time: 02/01/2020 12:39 Notice Type: Patient Choice Letter Notice Delivered To: Family Member Relationship to Patient: Spouse Liner Assembler Name: Connie Delivery Method: HAND - Hand Delivered Brielle Days: Prior Verbal Notification: Recipient Understood Notice: Yes Recipient Signature: Yes Med Rec Note Co-signed by Attending: Coverage Notice Comment: MARKEL for [facility] inpatient rehab and [facility] Reviewer: [id number] Bustillo Notice Issued Date-Time: 02/02/2020 12:29 Notice Type: IM Discharge Notice Notice Delivered To: Family Member Relationship to Patient: Spouse Liner Assembler Name: Connie Delivery Method: HAND - Hand Delivered Brielle Days: Prior Verbal Notification: Recipient Understood Notice: Yes Recipient Signature: Yes Med Rec Note Co-signed by Attending: Coverage Notice Comment: IMM explained, signed, given, copy placed in MR Reviewer: [id number] Ten Bustillo Notice Issued Date-Time: 02/02/2020 12:29 Notice Type: Patient Choice Letter Notice Delivered To: Family Member Relationship to Patient: Spouse Liner Assembler Name: Delivery Method: HAND - Hand Delivered Brielle Days: Prior Verbal Notification: Recipient Understood Notice: Yes Recipient Signature: Yes Med Rec Note Co-signed by Attending: Coverage Notice Comment: MARKEL for [facility] inpatient rehab or [facility] Last DP export: 02/02/20 11:32 a Patient Name: MATEO GALLO Page [phone] at 1338 All edits/amendments must be made on the electronic document DICTATION DATE: 02/04/201337 MEDICAL GENETICS DIRECTOR: MITCHEL 02/04/201337 RPT#: [id number] DC DATE: STATUS: ADM IN [facility] [address] [place] [address] END OF REPORT
--- NOTE | 2020-02-04 13:53 | NUR ---
NEW IV STARTED TO RIGHT FOREARM. IVF INFUSING ALONG WITH K-RIDER AND ANTIBIOTICS. TURNED TO RIGHT SIDE FOR COMFORT.
--- NOTE | 2020-02-04 14:22 | NUR ---
Nutrition Follow-up: Spoke with pt's . Reports pt drank 1 Ensure (thickened) this AM but nothing else and experienced coughing. She is concerned about pt going home with limited PO intake and possible aspiration. Discussed in IDT meeting. Noted MD discussed hospice vs PEG placement/aggressive measures with family. Diet: Cardiac, Puree, [place] Thick Liquids PO intake: 0-25% Wt: 98.1# (01/31) Labs noted: Na 153, K+ 2.8, Glu 123 Meds noted: D5W @ 75, Nystatin, Colace -+Ensure with meals. -RD available to assist with nutrition support as needed. -Need new wt; noted daily wts ordered. -RD following.
[2020-02-04 18:10] VITALS: BP 126/69
--- NOTE | 2020-02-04 19:25 | NUR ---
GRANDDAUGHTER CALLED ME WHILE WITH PT'S . REQUESTING TO STOP ALL CARE AND TAKE HIM HOME WITH HOSPICE CARE IN MORNING. HOSPICE [facility]ARE FAX NUMBER IS [phone]. ASKING FOR ORDER AND PAPERWORK FAXED IN MORNING WHEN GIVEN.
--- NOTE | 2020-02-04 19:50 | NUR ---
PT LYING IN BED RESTING WITH EYES CLOSED. EASY AWAKEN WITH VOICE STIMULATION. PT HAS NO COMPLAINTS AT THIS TIME. CALL LIGHT WITH IN REACH. WILL CONTINUE TO MONITOR.
[2020-02-04 22:37] VITALS: BP 125/60
[2020-02-05 00:40] VITALS: BP 137/71
--- NOTE | 2020-02-05 02:47 | NUR ---
PT REFUSES TO KEEP TELEMETRY ON. NO SIGNS OF DISTRESS NOTED. CALL LIGHT WITH IN REACH. BED ALARM ON AND ACTIVE. WILL CONTINUE TO MONITOR
--- NOTE | 2020-02-05 04:35 | NUR ---
I have reviewed this patient and I concur with the Shift Assessment completed by the Licensed Practical Nurse today this shift.
[2020-02-05 04:55] LABS: BASOPHILS 0.1 % (0-2); EOSINOPHILS 1.2 % (0-7); HEMATOCRIT 40.9 % (42.0-54.0); HEMOGLOBIN 12.7 g/dL (13.5-17.5); IMMATURE GRANULOCYTES 0.6 % (0-5); LYMPHOCYTES 9.9 % (15-50); MCH 31.8 pg (26.0-34.0); MCHC 31.1 g/dL (31.0-37.0); MCV 102.5 fL (80.0-100.0); MEAN PLATELET VOLUME 9.5 fL (7.4-10.4); MONOCYTES 7.4 % (2-11); NEUTROPHILS 80.8 % (40-80); RBC 3.99 10x6/uL (4.20-6.10); RDW 13.2 % (11.5-14.5); WBC 13.6 10x3/uL (4.8-10.8)
[2020-02-05 04:57] LABS: PLATELET COUNT 214 10x3/uL (130-400)
[2020-02-05 05:13] LABS: CALCIUM 8.7 mg/dL (8.5-10.1); CARBON DIOXIDE 30.5 mmol/L (21.0-32.0); CREATININE - SERUM 1.7 mg/dL (0.6-1.3)
[2020-02-05 05:14] LABS: POTASSIUM - SERUM 4.5 mmol/L (3.5-5.1)
[2020-02-05 07:13] VITALS: BP 143/59
[2020-02-05 08:07] VITALS: BP 116/53
--- NOTE | 2020-02-05 10:59 | NUR ---
OT NOTE: PT COMPLETED SUPINE TO SIT WITH MIN A. PT COMPLETED SIT TO STAND WITH MIN A. PT COMPLETED BED TO CHAIR WITH MIN A AND ADDITIONAL ASSIST TO MANAGE MEDICAL EQUIPMENT. [phone] THANK YOU,ROSE CARLSON
--- NOTE | 2020-02-05 11:17 | NUR ---
OT NOTE: BED MOB WITH MOD ASSIST; AMB WITH WALKER AND MIN/MOD ASSIST X 2 FROM BED TO CHAIR..POOR COORDINATION AND SCISSORING DURING AMBULATION; REUQIRED MOD ASSIST WITH WALKER MGMT; TRANSFERS IWTH MIN/MOD ASSIST. ANA MARIA PICKENS, OTR/L
[2020-02-05 11:32] VITALS: BP 93/57
--- NOTE | 2020-02-05 13:36 | MORECARE ---
CASE MANAGEMENT DISCHARGE SUMMARY PATIENT: MATEO GALLO UNIT: [id number] ADM DATE: 01/27/20 AGE: 84 : 35 SEX: M ROOM/BED: D.7638 AUTHOR: JEFFERY GREEN PHYSICIAN: REFERRING PHYSICIAN: HAMIDA MALONE DO DATE OF SERVICE: 02/05/20 Discharge Plan Patient Name: MATEO GALLO Facility: [facility]:[place] : 1935 Planned Disposition: Inpatient Rehab Anticipated Discharge Date: 02/01/20 Discharge Date: Expected LOS: 5 Initial Reviewer: [id number] Initial Review Date: 02/01/2020 Generated: 02/05/20 2:35 pm Comments DCP- Discharge Planning Updated by [id number]: Starr Gates on 02/05/20 12:[address] CALLED [facility] AND STARTED THE PROCESS FOR ADMISSION SOMEONE WILL CALL ME BACK DCP- Discharge Planning Updated by [email or web address]: Kandi Bustillo on 02/04/20 12:[address] Nereyda, grand daughter, informed me that they are considering home health vs hospice and do not want a P2P to be done for inpatient rehab at this time. CM will continue to follow and assist with discharge planning/needs. DCP- Discharge Planning Updated by [id number]: Kandi Bustillo on 02/02/20 11:[address] Patient's is at bedside. Patient is sitting in chair and is responding to his . I spoke with about discharge plan. I informed her that his insurance has denied inpatient rehab. She does want Dr. Quiñonez to do the peer to peer on Friday to see if this can be overturned. She is unsure at this time if he is strong enough to go home. She states if he does not qualify or is not authorized to go to inpatient rehab, she would like [facility] for PT and ST. I will set home health up in the event he is unable to go to inpatient rehab. CM will continue to follow and assist with discharge planning/needs. DCP- Discharge Planning Updated by [id number]: Kandi Bustillo on 02/01/20 11:[address] Patient Name: MATEO GALLO Admission Status: ER Accout number: [id number] Admission Date: 01-27-2020 : 1935 Admission Diagnosis: Attending: HAMIDA MALONE Current LOS: 5 Anticipated DC Date: 02-01-2020 Planned Disposition: Inpatient Rehab Primary Insurance: NOVASYSMCR DC Plan: DC to inpatient rehab at [facility] Discharge Planning Comments: CM called patient's to discuss discharge planning/needs. He lives with his . states typically he is able to ambulate with a cane or walker and do his own ADL's. States when he gets sick, his confusion is worse and he needs more direction. States she would like him to go to [facility] inpatient rehab before coming home. She declines SNF at this time if he is not authorized to go to inpatient rehab. She is asking for special circumstances to be able to come to [facility] and stay with her , states he probably will be more cooperative if I am there. Jany Otto is aware of this and is going to return her call concerning this. She states her is a , but declines to use the VA and just wants to use Medicare benefits. She states that she is considering [facility] when her is released from rehab. CM will continue to follow and assist with discharge planning/needs. Parliamentary Archivist: Kandi Bustillo DCPIA - Discharge Planning Initial Assessment Updated by [id number]: Kandi Bustillo on 02/01/20 12:28 pm * Is the patient Alert and Oriented? Yes * How many steps to enter\exit or inside your home? 3/0 * PCP Dr. Nur * Pharmacy [facility] on [address] * Preadmission Environment Home with Family * ADLs Partial Dependent * Partial ADLs (Assistance needed) Ambulation * Equipment Cane Walker * List name and contact numbers for known caregivers / representatives who currently or will assist patient after discharge: Connie Gallo - spouse - [phone] * Verbal permission to speak to the caregivers and representatives has been obtained from the patient. Yes * Community resources currently utilized None * Additional services required to return to the preadmission environment? No * Can the patient safely return to the preadmission environment? Yes * Has this patient been hospitalized within the prior 30 days at any hospital? No Coverage Notice Reviewer: [id number] - Kandi Bustillo Notice Issued Date-Time: 02/01/2020 12:39 Notice Type: Patient Choice Letter Notice Delivered To: Family Member Relationship to Patient: Spouse Water Quality Assistant Name: Connie Delivery Method: HAND - Hand Delivered Brielle Days: Prior Verbal Notification: Recipient Understood Notice: Yes Recipient Signature: Yes Med Rec Note Co-signed by Attending: Coverage Notice Comment: MARKEL for [facility] inpatient rehab and [facility] Reviewer: [id number] Bustillo Notice Issued Date-Time: 02/02/2020 12:29 Notice Type: IM Discharge Notice Notice Delivered To: Family Member Relationship to Patient: Spouse Water Quality Assistant Name: Connie Delivery Method: HAND - Hand Delivered Brielle Days: Prior Verbal Notification: Recipient Understood Notice: Yes Recipient Signature: Yes Med Rec Note Co-signed by Attending: Coverage Notice Comment: IMM explained, signed, given, copy placed in MR Reviewer: [id number] Bustillo Notice Issued Date-Time: 02/02/2020 12:29 Notice Type: Patient Choice Letter Notice Delivered To: Family Member Relationship to Patient: Spouse Water Quality Assistant Name: Delivery Method: HAND - Hand Delivered Brielle Days: Prior Verbal Notification: Recipient Understood Notice: Yes Recipient Signature: Yes Med Rec Note Co-signed by Attending: Coverage Notice Comment: MARKEL for [facility] inpatient rehab or [facility] Last DP export: 02/04/20 12:38 p Patient Name: MATEO GALLO Page [id number] at 1336 All edits/amendments must be made on the electronic document DICTATION DATE: 02/05/20 1335 AIRPORT MANAGER: MITCHEL 02/05/20 1335 RPT#: [id number] DC DATE: STATUS: ADM IN [facility] [address] [place] [address] END OF REPORT
--- NOTE | 2020-02-05 13:48 | MORECARE ---
CASE MANAGEMENT DISCHARGE SUMMARY PATIENT: MATEO GALLO UNIT: [id number] ADM DATE: 01/27/20 AGE: 84 : 35 SEX: M ROOM/BED: D.2130 AUTHOR: NORMADOC PHYSICIAN: REFERRING PHYSICIAN: HAMIDA MALONE DO DATE OF SERVICE: 02/05/20 Discharge Plan Patient Name: MATEO GALLO Facility: [facility]:[place] : 1935 Planned Disposition: Inpatient Rehab Anticipated Discharge Date: 02/01/20 Discharge Date: Expected LOS: 5 Initial Reviewer: [id number] Initial Review Date: 02/01/2020 Generated: 02/05/20 2:48 pm Comments DCP- Discharge Planning Updated by [email or web address]: Starr Gates on 02/05/20 12:[address] SPOKE WITH MARLEN (NURSE) AT [facility] AND SHE STATED THAT THE FAMILY WILL BE TRANSPORTING HIM HOME. I HAVE FAXED OVER ALL PAPERWORK TO [facility] # [phone] DCP- Discharge Planning Updated by [email or web address]: Starr Gates on 02/05/20 12:[address] CALLED [facility] AND STARTED THE PROCESS FOR ADMISSION SOMEONE WILL CALL ME BACK DCP- Discharge Planning Updated by [email or web address]: Kandi Bustillo on 02/04/20 12:[address] Nereyda, grand daughter, informed me that they are considering home health vs hospice and do not want a P2P to be done for inpatient rehab at this time. CM will continue to follow and assist with discharge planning/needs. DCP- Discharge Planning Updated by [email or web address]: Kandi Bustillo on 02/02/20 11:[address] Patient's is at bedside. Patient is sitting in chair and is responding to his . I spoke with about discharge plan. I informed her that his insurance has denied inpatient rehab. She does want Dr. Quiñonez to do the peer to peer on Friday to see if this can be overturned. She is unsure at this time if he is strong enough to go home. She states if he does not qualify or is not authorized to go to inpatient rehab, she would like [facility] for PT and ST. I will set home health up in the event he is unable to go to inpatient rehab. CM will continue to follow and assist with discharge planning/needs. DCP- Discharge Planning Updated by [email or web address]: Kandi Keny on 02/01/20 11:[address] Patient Name: MATEO GALLO Admission Status: ER Accout number: [id number] Admission Date: 01-27-2020 : 1935 Admission Diagnosis: Attending: HAMIDA MALONE Current LOS: 5 Anticipated DC Date: 02-01-2020 Planned Disposition: Inpatient Rehab Primary Insurance: [employer] DC Plan: DC to inpatient rehab at [facility] Discharge Planning Comments: CM called patient's to discuss discharge planning/needs. He lives with his . states typically he is able to ambulate with a cane or walker and do his own ADL's. States when he gets sick, his confusion is worse and he needs more direction. States she would like him to go to [facility] inpatient rehab before coming home. She declines SNF at this time if he is not authorized to go to inpatient rehab. She is asking for special circumstances to be able to come to [facility] and stay with her , states he probably will be more cooperative if I am there. Jany Otto is aware of this and is going to return her call concerning this. She states her is a , but declines to use the VA and just wants to use Medicare benefits. She states that she is considering [facility] when her is released from rehab. CM will continue to follow and assist with discharge planning/needs. Sales Attendant: Kandi Bustillo DCPIA - Discharge Planning Initial Assessment Updated by [email or web address]: Kandi Bustillo on 02/01/20 12:28 pm * Is the patient Alert and Oriented? Yes * How many steps to enter\exit or inside your home? 3/0 * PCP Dr. Nur * Pharmacy [facility] [address] * Preadmission Environment Home with Family * ADLs Partial Dependent * Partial ADLs (Assistance needed) Ambulation * Equipment Cane Walker * List name and contact numbers for known caregivers / representatives who currently or will assist patient after discharge: Connie Gallo - spouse - [phone] * Verbal permission to speak to the caregivers and representatives has been obtained from the patient. Yes * Community resources currently utilized None * Additional services required to return to the preadmission environment? No * Can the patient safely return to the preadmission environment? Yes * Has this patient been hospitalized within the prior 30 days at any hospital? No Coverage Notice Reviewer: [id number] Ten Bustillo Notice Issued Date-Time: 02/02/2020 12:29 Notice Type: IM Discharge Notice Notice Delivered To: Family Member Relationship to Patient: Spouse Unit Assistant Name: Connie Delivery Method: HAND - Hand Delivered Brielle Days: Prior Verbal Notification: Recipient Understood Notice: Yes Recipient Signature: Yes Med Rec Note Co-signed by Attending: Coverage Notice Comment: IMM explained, signed, given, copy placed in MR Reviewer: [id number] Ten Bustillo Notice Issued Date-Time: 02/02/2020 12:29 Notice Type: Patient Choice Letter Notice Delivered To: Family Member Relationship to Patient: Spouse Unit Assistant Name: Delivery Method: HAND - Hand Delivered Brielle Days: Prior Verbal Notification: Recipient Understood Notice: Yes Recipient Signature: Yes Med Rec Note Co-signed by Attending: Coverage Notice Comment: MARKEL for [facility] inpatient rehab or [facility] Reviewer: [id number] Ten Bustillo Notice Issued Date-Time: 02/01/2020 12:39 Notice Type: Patient Choice Letter Notice Delivered To: Family Member Relationship to Patient: Spouse Unit Assistant Name: Connie Delivery Method: HAND - Hand Delivered Brielle Days: Prior Verbal Notification: Recipient Understood Notice: Yes Recipient Signature: Yes Med Rec Note Co-signed by Attending: Coverage Notice Comment: MARKEL for [facility] inpatient rehab and [facility] Last DP export: 02/05/20 12:36 p Patient Name: MATEO GALLO Page [id number] at 1348 All edits/amendments must be made on the electronic document DICTATION DATE: 02/05/20 1348 RETAIL LOAN ORIGINATOR: MITCHEL 02/05/20 1348 RPT#: [id number] DC DATE: STATUS: ADM IN [facility] [address] [place] [address] END OF REPORT
--- NOTE | 2020-02-05 14:19 | MORECARE ---
CASE MANAGEMENT DISCHARGE SUMMARY PATIENT: MATEO GALLO UNIT: [id number] ADM DATE: 01/27/20 AGE: 84 : 35 SEX: M ROOM/BED: D.2137 AUTHOR: NORMADOC PHYSICIAN: REFERRING PHYSICIAN: HAMIDA MALONE DO DATE OF SERVICE: 02/05/20 Discharge Plan Patient Name: MATEO GALLO Facility: [facility]:[place] : 1935 Planned Disposition: Inpatient Rehab Anticipated Discharge Date: 02/01/20 Discharge Date: Expected LOS: 5 Initial Reviewer: [id number] Initial Review Date: 02/01/2020 Generated: 02/05/20 3:19 pm Comments DCP- Discharge Planning Updated by [id number]: Starr Gates on 02/05/20 12:[address] SPOKE WITH MARLEN (NURSE) AT [facility] AND SHE STATED THAT THE FAMILY WILL BE TRANSPORTING HIM HOME. I HAVE FAXED OVER ALL PAPERWORK TO [facility] # [phone] DCP- Discharge Planning Updated by [email or web address]: Starr Gates on 02/05/20 12:[address] CALLED [facility] AND STARTED THE PROCESS FOR ADMISSION SOMEONE WILL CALL ME BACK DCP- Discharge Planning Updated by [id number]: Kandi Bustillo on 02/04/20 12:[address] Nereyda, grand daughter, informed me that they are considering home health vs hospice and do not want a P2P to be done for inpatient rehab at this time. CM will continue to follow and assist with discharge planning/needs. DCP- Discharge Planning Updated by [email or web address]: Kandi Bustillo on 02/02/20 11:[address] Patient's is at bedside. Patient is sitting in chair and is responding to his . I spoke with about discharge plan. I informed her that his insurance has denied inpatient rehab. She does want Dr. Quiñonez to do the peer to peer on Friday to see if this can be overturned. She is unsure at this time if he is strong enough to go home. She states if he does not qualify or is not authorized to go to inpatient rehab, she would like [facility] for PT and ST. I will set home health up in the event he is unable to go to inpatient rehab. CM will continue to follow and assist with discharge planning/needs. DCP- Discharge Planning Updated by [email or web address]: Kandi Keny on 02/01/20 11:[address] Patient Name: MATEO GALLO Admission Status: ER Accout number: [id number] Admission Date: 01-27-2020 : 1935 Admission Diagnosis: Attending: HAMIDA MALONE Current LOS: 5 Anticipated DC Date: 02-01-2020 Planned Disposition: Inpatient Rehab Primary Insurance: [employer] DC Plan: DC to inpatient rehab at [facility] Discharge Planning Comments: CM called patient's to discuss discharge planning/needs. He lives with his . states typically he is able to ambulate with a cane or walker and do his own ADL's. States when he gets sick, his confusion is worse and he needs more direction. States she would like him to go to [facility] inpatient rehab before coming home. She declines SNF at this time if he is not authorized to go to inpatient rehab. She is asking for special circumstances to be able to come to [facility] and stay with her , states he probably will be more cooperative if I am there. Jany Otto is aware of this and is going to return her call concerning this. She states her is a , but declines to use the VA and just wants to use Medicare benefits. She states that she is considering [facility] when her is released from rehab. CM will continue to follow and assist with discharge planning/needs. Diesel Instructor: Kandi Bustillo DCPIA - Discharge Planning Initial Assessment Updated by [email or web address]: Kandi Bustillo on 02/01/20 12:28 pm * Is the patient Alert and Oriented? Yes * How many steps to enter\exit or inside your home? 3/0 * PCP Dr. Nur * Pharmacy [facility] [address] * Preadmission Environment Home with Family * ADLs Partial Dependent * Partial ADLs (Assistance needed) Ambulation * Equipment Cane Walker * List name and contact numbers for known caregivers / representatives who currently or will assist patient after discharge: Connie Gallo - spouse - [phone] * Verbal permission to speak to the caregivers and representatives has been obtained from the patient. Yes * Community resources currently utilized None * Additional services required to return to the preadmission environment? No * Can the patient safely return to the preadmission environment? Yes * Has this patient been hospitalized within the prior 30 days at any hospital? No Coverage Notice Reviewer: [id number] Ten Bustillo Notice Issued Date-Time: 02/02/2020 12:29 Notice Type: Patient Choice Letter Notice Delivered To: Family Member Relationship to Patient: Spouse Director Adult Name: Delivery Method: HAND - Hand Delivered Brielle Days: Prior Verbal Notification: Recipient Understood Notice: Yes Recipient Signature: Yes Med Rec Note Co-signed by Attending: Coverage Notice Comment: MARKEL for [facility] inpatient rehab or [facility] Reviewer: [id number] Ten Bustillo Notice Issued Date-Time: 02/01/2020 12:39 Notice Type: Patient Choice Letter Notice Delivered To: Family Member Relationship to Patient: Spouse Director Adult Name: Connie Delivery Method: HAND - Hand Delivered Brielle Days: Prior Verbal Notification: Recipient Understood Notice: Yes Recipient Signature: Yes Med Rec Note Co-signed by Attending: Coverage Notice Comment: MARKEL for [facility] inpatient rehab and [facility] Reviewer: [id number] Ten Bustillo Notice Issued Date-Time: 02/02/2020 12:29 Notice Type: IM Discharge Notice Notice Delivered To: Family Member Relationship to Patient: Spouse Director Adult Name: Connie Delivery Method: HAND - Hand Delivered Brielle Days: Prior Verbal Notification: Recipient Understood Notice: Yes Recipient Signature: Yes Med Rec Note Co-signed by Attending: Coverage Notice Comment: IMM explained, signed, given, copy placed in MR Reviewer: [id number] Ten Gates Notice Issued Date-Time: 02/05/2020 13:45 Notice Type: IM Discharge Notice Notice Delivered To: Relationship to Patient: Director Adult Name: pt home with hospice Delivery Method: - Brielle Days: Prior Verbal Notification: Recipient Understood Notice: Recipient Signature: Med Rec Note Co-signed by Attending: Coverage Notice Comment: home with hospice, hospice nurse spoke with family Malren (hospice nurse) Last DP export: 02/05/20 12:49 p Patient Name: MATEO GALLO Page [id number] at 1419 All edits/amendments must be made on the electronic document DICTATION DATE: 02/05/201418 TOOTH CUTTER SPUR: MITCHEL 02/05/201418 RPT#: [id number] DC DATE: STATUS: ADM IN [facility] [address] [place] [address] END OF REPORT
--- NOTE | 2020-02-05 15:27 | NUR ---
DISCHARGE INSTRUCTIONS REVIEWED WITH AND SIGNED. MEDS RETREIVED FROM PHARMACY AND RETURNED TO . CHANGED AND ASSISTED INTO CAR. HOSPICE NURSE NOTIFIED OF TIME LEAVING.
--- NOTE | 2020-02-06 16:09 | MORECARE ---
CASE MANAGEMENT DISCHARGE SUMMARY PATIENT: MATEO GALLO UNIT: [id number] ADM DATE: 01/27/20 AGE: 84 : 35 SEX: M ROOM/BED: D.213 AUTHOR: JEFFERY GREEN PHYSICIAN: REFERRING PHYSICIAN: HAMIDA MALONE DO DATE OF SERVICE: 02/06/20 Discharge Plan Patient Name: MATEO GALLO Facility: [facility]:[place] : 1935 Planned Disposition: Inpatient Rehab Anticipated Discharge Date: 02/01/20 Discharge Date: 02/05/2020 Expected LOS: 5 Initial Reviewer: [id number] Initial Review Date: 02/01/2020 Generated: 02/06/20 5:08 pm Comments DCP- Discharge Planning Updated by [email or web address]: Starr Gates on 02/05/20 12:[address] SPOKE WITH MARLEN (NURSE) AT [facility] AND SHE STATED THAT THE FAMILY WILL BE TRANSPORTING HIM HOME. I HAVE FAXED OVER ALL PAPERWORK TO [facility] # [phone] DCP- Discharge Planning Updated by [email or web address]: Starr Gates on 02/05/20 12:[address] CALLED [facility] AND STARTED THE PROCESS FOR ADMISSION SOMEONE WILL CALL ME BACK DCP- Discharge Planning Updated by [email or web address]: Kandi Bustillo on 02/04/20 12:[address] Nereyda, grand daughter, informed me that they are considering home health vs hospice and do not want a P2P to be done for inpatient rehab at this time. CM will continue to follow and assist with discharge planning/needs. DCP- Discharge Planning Updated by [email or web address]: Kandi Bustillo on 02/02/20 11:[address] Patient's is at bedside. Patient is sitting in chair and is responding to his . I spoke with about discharge plan. I informed her that his insurance has denied inpatient rehab. She does want Dr. Quiñonez to do the peer to peer on Friday to see if this can be overturned. She is unsure at this time if he is strong enough to go home. She states if he does not qualify or is not authorized to go to inpatient rehab, she would like [facility] for PT and ST. I will set home health up in the event he is unable to go to inpatient rehab. CM will continue to follow and assist with discharge planning/needs. DCP- Discharge Planning Updated by [id number]: Kandi Keny on 02/01/20 11:[address] Patient Name: MATEO GALLO Admission Status: ER Accout number: [id number] Admission Date: 01-27-2020 : 1935 Admission Diagnosis: Attending: HAMIDA MALONE Current LOS: 5 Anticipated DC Date: 02-01-2020 Planned Disposition: Inpatient Rehab Primary Insurance: [employer] DC Plan: DC to inpatient rehab at [facility] Discharge Planning Comments: CM called patient's to discuss discharge planning/needs. He lives with his . states typically he is able to ambulate with a cane or walker and do his own ADL's. States when he gets sick, his confusion is worse and he needs more direction. States she would like him to go to [facility] inpatient rehab before coming home. She declines SNF at this time if he is not authorized to go to inpatient rehab. She is asking for special circumstances to be able to come to [facility] and stay with her , states he probably will be more cooperative if I am there. Jany Otto is aware of this and is going to return her call concerning this. She states her is a , but declines to use the VA and just wants to use Medicare benefits. She states that she is considering [facility] when her is released from rehab. CM will continue to follow and assist with discharge planning/needs. Gardening Manager: Kandi Bustillo DCPIA - Discharge Planning Initial Assessment Updated by [email or web address]: Kandi Bustillo on 02/01/20 12:28 pm * Is the patient Alert and Oriented? Yes * How many steps to enter\exit or inside your home? 3/0 * PCP Dr. Nur * Pharmacy [facility] [address] * Preadmission Environment Home with Family * ADLs Partial Dependent * Partial ADLs (Assistance needed) Ambulation * Equipment Cane Walker * List name and contact numbers for known caregivers / representatives who currently or will assist patient after discharge: Connie Gallo - spouse - [phone] * Verbal permission to speak to the caregivers and representatives has been obtained from the patient. Yes * Community resources currently utilized None * Additional services required to return to the preadmission environment? No * Can the patient safely return to the preadmission environment? Yes * Has this patient been hospitalized within the prior 30 days at any hospital? No Coverage Notice Reviewer: [id number] Ten Bustillo Notice Issued Date-Time: 02/01/2020 12:39 Notice Type: Patient Choice Letter Notice Delivered To: Family Member Relationship to Patient: Spouse Sheet Combining Operator Name: Connie Delivery Method: HAND - Hand Delivered Brielle Days: Prior Verbal Notification: Recipient Understood Notice: Yes Recipient Signature: Yes Med Rec Note Co-signed by Attending: Coverage Notice Comment: MARKEL for [facility] inpatient rehab and [facility] Reviewer: [id number] Ten Bustillo Notice Issued Date-Time: 02/02/2020 12:29 Notice Type: IM Discharge Notice Notice Delivered To: Family Member Relationship to Patient: Spouse Sheet Combining Operator Name: Connie Delivery Method: HAND - Hand Delivered Brielle Days: Prior Verbal Notification: Recipient Understood Notice: Yes Recipient Signature: Yes Med Rec Note Co-signed by Attending: Coverage Notice Comment: IMM explained, signed, given, copy placed in MR Reviewer: [id number] Ten Bustillo Notice Issued Date-Time: 02/02/2020 12:29 Notice Type: Patient Choice Letter Notice Delivered To: Family Member Relationship to Patient: Spouse Sheet Combining Operator Name: Delivery Method: HAND - Hand Delivered Brielle Days: Prior Verbal Notification: Recipient Understood Notice: Yes Recipient Signature: Yes Med Rec Note Co-signed by Attending: Coverage Notice Comment: MARKEL for [facility] inpatient rehab or [facility] Reviewer: [id number] Ten Gates Notice Issued Date-Time: 02/05/2020 13:45 Notice Type: IM Discharge Notice Notice Delivered To: Relationship to Patient: Sheet Combining Operator Name: pt home with hospice Delivery Method: - Brielle Days: Prior Verbal Notification: Recipient Understood Notice: Recipient Signature: Med Rec Note Co-signed by Attending: Coverage Notice Comment: home with hospice, hospice nurse spoke with family Marlen (hospice nurse) Last DP export: 02/05/20 1:19 p Patient Name: MATEO GALLO Page [id number] at 1609 All edits/amendments must be made on the electronic document DICTATION DATE: 02/06/208 CLIENT ADVOCATE: MITCHEL 02/06/201607 RPT#: [id number] DC DATE:02/05/20 STATUS: DIS IN [facility] [address] [place] [address] END OF REPORT
== END 2020-02-05 15:29 | disposition home health service (06) | DRG 166 ==
LOC: D.ER 10:16 → D.M2 12:30
PROVIDERS: Emergency Medicine; Family Medicine; Internal Medicine Nephrology; Internal Medicine Pulmonary Disease; Radiology Vascular & Interventional Radiology; ADMIT Family Medicine; ATTEND Family Medicine
PROC: 0BBJ8ZX Excision of Left Lower Lung Lobe, Via Natural or Artificial Opening Endoscopic, Diagnostic (ICD-10-PCS; 2020-02-01)
PROC: 0B9J8ZX Drainage of Left Lower Lung Lobe, Via Natural or Artificial Opening Endoscopic, Diagnostic (ICD-10-PCS; 2020-02-01)
PROC: 0W9B3ZZ Drainage of Left Pleural Cavity, Percutaneous Approach (ICD-10-PCS; principal; 2020-02-01 09:44)
DX: J69.0 Pneumonitis due to inhalation of food and vomit (principal); G93.41 Metabolic encephalopathy; I50.31 Acute diastolic (congestive) heart failure; E43 Unspecified severe protein-calorie malnutrition; R40.2344 Coma scale, best motor response, flexion withdrawal, 24 hours or more after hospital admission; R40.2224 Coma scale, best verbal response, incomprehensible words, 24 hours or more after hospital admission; N17.9 Acute kidney failure, unspecified; J98.11 Atelectasis; I13.0 Hypertensive heart and chronic kidney disease with heart failure and stage 1 through stage 4 chronic kidney disease, or unspecified chronic kidney disease; E78.5 Hyperlipidemia, unspecified; D53.9 Nutritional anemia, unspecified; G89.29 Other chronic pain; M54.9 Dorsalgia, unspecified; N40.0 Benign prostatic hyperplasia without lower urinary tract symptoms; F03.90 Unspecified dementia, unspecified severity, without behavioral disturbance, psychotic disturbance, mood disturbance, and anxiety; Z68.22 Body mass index [BMI] 22.0-22.9, adult; E55.9 Vitamin D deficiency, unspecified; N18.9 Chronic kidney disease, unspecified; R40.2134 Coma scale, eyes open, to sound, 24 hours or more after hospital admission